=== PATIENT | female | born 1995 | race Caucasian/White ===

== ENCOUNTER 2018-12-26 20:54 | Emergency (ER) | payer OTHER ==
[2018-12-26] MEDS ORDERED: NS 1,000 ML IV ONE ×2 (21:30)
[2018-12-26 21:44] LABS: PLATELET COUNT 299 10^3/uL (150-400)
[2018-12-26] MEDS ORDERED: ONDANSETRON 4 MG/2 ML VIAL ONE (21:46)
[2018-12-26] MEDS ORDERED: HYDROmorphONE/DILAUDID 2 MG/ML INJ ONE (21:47)
[2018-12-26] MEDS ORDERED: ONDANSETRON 4 MG/2 ML VIAL IVP ONE (21:48)
[2018-12-26] MEDS ORDERED: HYDROmorphONE/DILAUDID 2 MG/ML INJ IVP ONE (21:49)
[2018-12-26] MEDS ORDERED: KETOROLAC 15 MG/1 ML SDV IVP ONE ×2 (21:54→22:42)
[2018-12-26] MEDS ORDERED: KETOROLAC 15 MG/1 ML SDV ONE (21:55)
[2018-12-26] MEDS ORDERED: ACETAMINOPHEN 500 MG TAB ONE (22:40)
[2018-12-26] MEDS ORDERED: ACETAMINOPHEN 500 MG TAB PO ONE (22:42)
--- NOTE | 2018-12-26 23:14 | EDPHY ---
H & P Stated Complaint: bilat flank pain with pain with urination Time Seen by Provider: 12/26/18 20:58 HPI/ROS: Chief complaint: Blood in urine and flank pain History of present illness: This is a 23-year-old female, who is a type 1 diabetic but admits she has poorly controlled, who presents to the emergency department for evaluation of blood in the urine and flank pain. She states she 1st initially noticed the blood while on a trip to the [facility] a few weeks ago. She hydrated and symptoms resolved. However over the last 2 days the blood has return. In addition at the end of urination she reports a little bit of discomfort. She has also developed flank pain, right greater than left. She denies associated signs or symptoms including no fevers, no vomiting, no urinary frequency or hesitancy, no bleeding from the vagina, no bowel changes. Review of systems: A 10 point review of systems was obtained and other than described above was negative - Personal History LMP (Females 10-55): Extended Cycle BCP/Inj Current Tetanus/Diphtheria Vaccine: Yes Current Tetanus Diphtheria and Acellular Pertussis (TDAP): Yes - Medical/Surgical History Hx Asthma: No Hx Chronic Respiratory Disease: No Hx Diabetes: Yes Hx Cardiac Disease: No Hx Renal Disease: No Hx Cirrhosis: No Hx Alcoholism: No Hx HIV/AIDS: No Hx Splenectomy or Spleen Trauma: No Other PMH: DM1 - Social History Smoking Status: Never smoked - Physical Exam Exam: General Appearance: Alert, no distress. Eyes: Pupils equal and round no pallor or injection. ENT, Mouth: Mucous membranes moist. Respiratory: There are no retractions, lungs are clear to auscultation. Cardiovascular: Regular rate and rhythm. Gastrointestinal: Abdomen is soft and non tender, no masses, bowel sounds normal. Genitourinary: No suprapubic tenderness. Mild CVA tenderness bilaterally. Neurological: Alert and oriented x4. Skin: Warm and dry, no rashes. Musculoskeletal: Neck is supple non tender. Extremities are symmetrical, full range of motion. Psychiatric: Patient is oriented X 3, there is no agitation. Constitutional: Initial Vital Signs Temperature (C) 36.6 C 12/26/18 20:57 Heart Rate 88 12/26/18 20:57 Respiratory Rate 16 12/26/18 20:57 Blood Pressure 143/104 H 12/26/18 20:57 O2 Sat (%) 99 12/26/18 20:57 O2 Delivery Mode Room Air Allergies/Adverse Reactions: No Known Allergies Allergy (Unverified 12/26/18 21:00) Home Medications: Medication Instructions Recorded Cephalexin [Keflex] 500 mg PO TID 7 Days cap 12/26/18 Humalog 12/26/18 Medical Decision Making - Diagnostics Imaging Results: Imaging Impressions Abdomen/Pelvis CT 12/26/18 22:06 Impression: 1. Moderate right-sided hydronephrosis secondary to a 2 mm right UVJ calculus. 2. Tiny nonobstructive calculus upper pole of each kidney. Attention: This CT examination is specifically designed to evaluate patients who are clinically suspected of having acute obstructive uropathy. This examination does not use radiographic contrast, and as such, provides only a limited evaluation of the abdomen, pelvis and retroperitoneum. If there is further clinical suspicion for pathological conditions other than obstructive uropathy, a complete CT evaluation of the abdomen and pelvis utilizing intravenous and oral contrast should be considered. Findings discussed with Dr. Banuelos answering for ARINA Ibrahim at 22:46 hour , 12/26/2018. Imaging: Discussed imaging studies w/ scall[facility] Radiologist ED Course/Re-evaluation: Patient is discussed with my secondary supervising physician Dr. Emily Garcia. Patient presents with blood in her urine and flank pain. Patient is nontoxic. Vital signs are stable. Her initial laboratory studies do show a blood sugar in the 400s, she states this is not uncommon for her. Urinalysis is largely unremarkable with minimal findings outside of blood. CT scan does confirm a distal right-sided 2 mm stone. She has been IV hydrated, her sugars are in the 200 prior to discharge. Her pain is controlled. Although I doubt this represents an infection given I believe she is high risk for an infection therefore she is given 1 g Rocephin and will be discharged on Keflex. She is referred to Urology for follow-up on the kidney stone. I have also given her referral information to a local admitting supervisor and sales representative consultant as she is new to [facility] and has not established healthcare. Strict return precautions are discussed. She has voiced understanding and agreement with plan. Differential Diagnosis: Included but not limited to cystitis, pyelonephritis, nephrolithiasis, intra- abdominal pathology, with associated complications - Data Points Laboratory Results: Laboratory Results 12/26/18 21:14 12/26/18 21:14 12/26/18 12/26/18 12/26/18 23:22 21:30 21:14 WBC RBC Hgb Hct MCV MCH MCHC RDW Plt Count MPV Neut % (Auto) Lymph % (Auto) [place] % (Auto) Eos % (Auto) Baso % (Auto) Nucleat RBC Rel Count Absolute Neuts (auto) Absolute Lymphs (auto) Absolute Monos (auto) Absolute Eos (auto) Absolute Basos (auto) Absolute Nucleated RBC Immature Gran % Seg Neutrophils % Band Neutrophils % Lymphocytes % Monocytes % Eosinophils % Basophils % Metamyelocytes % Myelocytes % Promyelocytes % Blast Cells % Immature Gran # Absolute Seg Neuts Absolute Band Neuts Absolute Lymphocytes Absolute Monocytes Absolute Eosinophils Absolute Basophils Absolute Metamyelocyte Absolute Myelocytes Absolute Promyelocytes Absolute Plasma Cells Nucleated RBCs RBC/WBC/PLT Morphology Absolute Blast Cells Plasma Cells % Platelet Estimate Sodium Potassium Chloride Carbon Dioxide Anion Gap BUN Creatinine Estimated GFR Glucose POC Glucose 249 mg/dL H mg/dL (70-100) Calcium Beta HCG, Qual NEGATIVE Urine Color PALE YELLOW Urine Appearance HAZY Urine pH 7.0 (5.0-7.5) Ur Specific [place] 1.028 (1.002-1.030) Urine Protein 1+ H (NEGATIVE) Urine Ketones NEGATIVE (NEGATIVE) Urine Blood NEGATIVE (NEGATIVE) Urine Nitrate NEGATIVE (NEGATIVE) Urine Bilirubin NEGATIVE (NEGATIVE) Urine Urobilinogen NEGATIVE EU EU (0.2-1.0) Ur Leukocyte Esterase TRACE H (NEGATIVE) Urine RBC 10-15 /hpf H /hpf (0-3) Urine WBC 1-3 /hpf /hpf (0-3) Ur Epithelial Cells 1+ /lpf /lpf (NONE-1+) Urine Mucus TRACE /lpf /lpf (NONE-1+) Urine Glucose 3+ H (NEGATIVE) 12/26/18 12/26/18 21:14 21:14 WBC 11.41 10^3/uL H 10^3/uL (3.80-9.50) RBC 4.42 10^6/uL 10^6/uL (4.18-5.33) Hgb 13.8 g/dL g/dL (12.6-16.3) Hct 40.8 % % (38.0-47.0) MCV 92.3 fL fL (81.5-99.8) MCH 31.2 pg pg (27.9-34.1) MCHC 33.8 g/dL g/dL (32.4-36.7) RDW 12.4 % % (11.5-15.2) Plt Count 299 10^3/uL 10^3/uL (150-400) MPV 9.8 fL fL (8.7-11.7) Neut % (Auto) Not Reported Lymph % (Auto) Not Reported [place] % (Auto) Not Reported Eos % (Auto) Not Reported Baso % (Auto) Not Reported Nucleat RBC Rel Count Not Reported Absolute Neuts (auto) Not Reported Absolute Lymphs (auto) Not Reported Absolute Monos (auto) Not Reported Absolute Eos (auto) Not Reported Absolute Basos (auto) Not Reported Absolute Nucleated RBC Not Reported Immature Gran % Not Reported Seg Neutrophils % 70.7 % % Band Neutrophils % 0.0 % % Lymphocytes % 19.2 % % Monocytes % 7.1 % % Eosinophils % 1.0 % % Basophils % 2.0 % % Metamyelocytes % 0.0 % % Myelocytes % 0.0 % % Promyelocytes % 0.0 % % Blast Cells % 0.0 % % Immature Gran # Not Reported Absolute Seg Neuts 8.07 10^3/uL H 10^3/uL (1.70-6.50) Absolute Band Neuts 0.00 10^3/uL 10^3/uL (0.00-0.70) Absolute Lymphocytes 2.19 10^3/uL 10^3/uL (1.00-3.00) Absolute Monocytes 0.81 10^3/uL H 10^3/uL (0.30-0.80) Absolute Eosinophils 0.11 10^3/uL 10^3/uL (0.03-0.40) Absolute Basophils 0.23 10^3/uL H 10^3/uL (0.02-0.10) Absolute Metamyelocyte 0.00 10^3/mL 10^3/mL (0.00-0.00) Absolute Myelocytes 0.00 10^3/mL 10^3/mL (0.00-0.00) Absolute Promyelocytes 0.00 10^3/uL 10^3/uL (0.00-0.00) Absolute Plasma Cells 0.00 10^3/uL 10^3/uL (0.00-0.00) Nucleated RBCs 0 /100 WBC /100 WBC (0-0) RBC/WBC/PLT Morphology NORMAL (NORMAL) Absolute Blast Cells 0.00 10^3/uL 10^3/uL (0.00-0.00) Plasma Cells % 0.0 % % Platelet Estimate ADEQUATE (ADEQ) Sodium 136 mEq/L mEq/L (135-145) Potassium 3.8 mEq/L mEq/L (3.5-5.2) Chloride 97 mEq/L mEq/L (97-110) Carbon Dioxide 28 mEq/l mEq/l (22-31) Anion Gap 11 mEq/L mEq/L (6-14) BUN 17 mg/dL mg/dL (7-23) Creatinine 0.7 mg/dL mg/dL (0.6-1.0) Estimated GFR > 60 Glucose 447 mg/dL H mg/dL (70-100) POC Glucose Calcium 9.4 mg/dL mg/dL (8.5-10.4) Beta HCG, Qual Urine Color Urine Appearance Urine pH Ur Specific [place] Urine Protein Urine Ketones Urine Blood Urine Nitrate Urine Bilirubin Urine Urobilinogen Ur Leukocyte Esterase Urine RBC Urine WBC Ur Epithelial Cells Urine Mucus Urine Glucose Medications Given: Discontinued Medications Acetaminophen (Tylenol) 1,000 mg PO EDNOW ONE Stop: 12/26/18 22:43 Last Admin: 12/26/18 22:43 Dose: 1,000 mg Hydrocodone Bitart/Acetaminophen ([place] 5/325mg Prepack#6) 1 btl TAKEHOME EDNOW ONE Stop: 12/26/18 23:26 Last Admin: 12/26/18 23:34 Dose: 1 btl Hydromorphone HCl (Dilaudid) 0.5 mg IVP EDNOW ONE Stop: 12/26/18 21:50 Last Admin: 12/26/18 21:56 Dose: Not Given Sodium Chloride (Ns) 1,000 mls @ 0 mls/hr IV EDNOW ONE; Wide Open PRN Reason: Protocol Stop: 12/26/18 21:31 Last Admin: 12/26/18 21:42 Dose: 1,000 mls Sodium Chloride (Ns) 1,000 mls @ 0 mls/hr IV EDNOW ONE; Wide Open PRN Reason: Protocol Stop: 12/26/18 21:31 Last Admin: 12/26/18 21:43 Dose: 1,000 mls Ceftriaxone Sodium/Dextrose (Rocephin 1 Gm (Premix)) 50 mls @ 100 mls/hr IV EDNOW ONE PRN Reason: Protocol Stop: 12/26/18 22:23 Last Admin: 12/26/18 22:04 Dose: 50 mls Ketorolac Tromethamine (Toradol) 15 mg IVP EDNOW ONE Stop: 12/26/18 21:55 Last Admin: 12/26/18 21:57 Dose: 15 mg Ketorolac Tromethamine (Toradol) 15 mg IVP EDNOW ONE Stop: 12/26/18 22:43 Last Admin: 12/26/18 22:43 Dose: 15 mg Ondansetron HCl (Zofran) 4 mg IVP EDNOW ONE Stop: 12/26/18 21:49 Last Admin: 12/26/18 21:50 Dose: 4 mg Ondansetron HCl (Zofran Odt 4 Mg Prepack#2) 1 btl TAKEHOME EDNOW ONE Stop: 12/26/18 23:26 Last Admin: 12/26/18 23:33 Dose: 1 btl Point of Care Test Results: Chemistry 12/26/18 23:22 POC Glucose 249 mg/dL H mg/dL (70-100) Departure - Departure Disposition: Home, Routine, Self-Care Clinical Impression: Kidney stone Condition: Good Instructions: Kidney Stones (ED) Additional Instructions: Please follow-up with a primary care doctor to establish general medical care Please follow-up with Endocrinology to establish care to take care of your diabetes Please follow-up with Urology for recheck of your kidney stone In regards to pain control see the following: Use ibuprofen 400 mg 3 times a day for the next 2-3 days for pain In addition You have been prescribed [[place]] for pain. [[place]] contains Tylenol, do not take extra Tylenol/acetaminophen/Apap with it. It is sedating. Drink plenty of fluids to stay hydrated Monitor your sugars closely If symptoms worsen or new symptoms develop return immediately to the closest emergency room Referrals: NONE *PRIMARY CARE P,. [Primary Care Provider] - As per Instructions Kylah Gaspar MD [Medical Doctor] - As per Instructions Royd Teague [place] [place] - As per Instructions Seymour Malave MD [Medical Doctor] - As per Instructions Prescriptions: Cephalexin [Keflex] 500 mg PO TID 7 Days cap
[2018-12-26] MEDS ORDERED: ONDANSETRON 4MG PREPACK#2 BTL TAKEHOME ONE (23:25)
[2018-12-26] MEDS ORDERED: HYDROCOD/APAP 5/325 PREPACK#6 BTL TAKEHOME ONE (23:25)
[2018-12-26 23:36] VITALS: BP 137/89
== END 2018-12-26 23:42 | disposition home or self-care (01) ==
DX: N20.0 Calculus of kidney (principal); E10.9 Type 1 diabetes mellitus without complications; E86.9 Volume depletion, unspecified
CPT/HCPCS: 96365; J0696; J1170; J1885; J2405